=== PATIENT | male | born 1940 ===

== ENCOUNTER 2021-02-28 08:19 | Observation (INO) ==
--- NOTE | 2021-01-31 15:04 | PAT Medication Instructions ---
Medication Instructions Date of Service January 31, 2021 Home Medications amlodipine 5 mg tablet 5 mg PO QAM aspirin 81 mg tablet 81 mg PO 3XWK atorvastatin 20 mg tablet 20 mg PO PM cyanocobalamin (vitamin B-12) 1,000 mcg tablet,extended release 1,000 mcg PO 3XWK empagliflozin 25 mg tablet 25 mg PO QAM finasteride 5 mg tablet 5 mg PO PM losartan 100 mg tablet 100 mg PO QAM metformin 1,000 mg tablet 1,000 mg PO BID metoprolol succinate 50 mg tablet,extended release 24 hr 50 mg PO QAM uwxosmblrcwg-wbtpocdt-yetxgh tablet 1 tab PO QAM omeprazole 20 mg capsule,delayed release 20 mg PO PM ferrous sulfate 325 mg PO QAM Continue as directed aspirin 81 mg tablet 81 mg PO 3XWK (continue as normal unless told otherwise by surgeon) STOP taking 2 weeks before surgery (or as soon as possible if surgery is within 2 weeks) bxxnltgsofcv-cnorqcfr-thntup tablet 1 tab PO QAM DO NOT take the morning of surgery cyanocobalamin (vitamin B-12) 1,000 mcg tablet,extended release 1,000 mcg PO 3XWK empagliflozin 25 mg tablet 25 mg PO QAM losartan 100 mg tablet 100 mg PO QAM metformin 1,000 mg tablet 1,000 mg PO BID ferrous sulfate 325 mg PO QAM Take morning of surgery With a small sip of water, OTHERWISE NOTHING TO EAT OR DRINK AFTER MIDNIGHT: amlodipine 5 mg tablet 5 mg PO QAM metoprolol succinate 50 mg tablet,extended release 24 hr 50 mg PO QAM Take evening before surgery atorvastatin 20 mg tablet 20 mg PO PM finasteride 5 mg tablet 5 mg PO PM metformin 1,000 mg tablet 1,000 mg PO BID omeprazole 20 mg capsule,delayed release 20 mg PO PM Other Notes If you have any questions please call us at [phone] or [phone] or [phone] or [phone]
--- NOTE | 2021-02-03 09:50 | Anesthesiology Consultation ---
Date of Service February 03, 2021 Assessment & Plan (1) Encounter for pre-operative examination: COVID Status: As of 02/03 assessment, patient denies travel to endemic area, known exposure/sick contacts, or symptoms of COVID19. Patient instructed that they and their household members must follow strict social distancing guidelines, wear a mask in public and avoid travel/events/gatherings for 14 days prior to surgery. Preoperative COVID19 testing to be completed prior to surgery per surgeon's arrangements (02/24). Patient made aware to self-isolate as much as possible between COVID testing and surgery. BSG AM DOS. Will check platelet count AM of surgery prior to SAB. Chart Review Chart Review: Acceptable Risk for Surgery (pending hematology appointment 02/04) and Patient seen in Pre Admission Testing Teaching & Discussion Instructed NPO after midnight before surgery, except medications with 15 cc of water. Medication instructions provided according to the PAT guidelines. History Surgery Operation Date: 02/28/21 07:15 Proposed Procedures p Right Total Knee Arthroplasty - Juan Carlos Mon MD Height/Weight Height: 5 ft 11 in Weight: 81.2 kg Allergies Allergy/AdvReac Type Severity Reaction Status Date / Time tamsulosin [From Flomax] AdvReac Intermediate Dizziness Verified 01/31/21 07:34 Medications Home Medications Medication Instructions Recorded Confirmed Last Taken amlodipine 5 mg tablet 5 mg PO QAM 06/14/20 01/31/21 Unknown aspirin 81 mg tablet 81 mg PO 3XWK 06/14/20 01/31/21 Unknown atorvastatin 20 mg tablet 20 mg PO PM 06/14/20 01/31/21 Unknown cyanocobalamin (vitamin B-12) 1,000 mcg PO 3XWK 06/14/20 01/31/21 Unknown 1,000 mcg tablet,extended release empagliflozin 25 mg tablet 25 mg PO QAM 06/14/20 01/31/21 Unknown finasteride 5 mg tablet 5 mg PO PM 06/14/20 01/31/21 Unknown lancets 28 gauge #25 ea 06/14/20 06/14/20 Unknown losartan 100 mg tablet 100 mg PO QAM 06/14/20 01/31/21 Unknown metformin 1,000 mg tablet 1,000 mg PO BID 06/14/20 01/31/21 Unknown metoprolol succinate 50 mg 50 mg PO QAM 06/14/20 01/31/21 Unknown tablet,extended release 24 hr xluzfkyoybgq-yoaxktvq-ucdozn tablet 1 tab PO QAM 06/14/20 01/31/21 Unknown omeprazole 20 mg capsule,delayed 20 mg PO PM 06/14/20 01/31/21 Unknown release ferrous sulfate 325 mg PO QAM 01/31/21 01/31/21 Unknown Wheeled Walker #1 ea 02/03/21 02/03/21 Unknown Past Medical History Medical History (Updated 02/03/21 @ 15:08 by Suleiman Linder) Anemia with low platelet count PT REPORTS HAS ALWAYS HAD LOW PLATELET COUNT > FOLLOWS WITH [facility]> DR. ALISSA GIVENS JR. Bilateral primary osteoarthritis of knee BPH (benign prostatic hyperplasia) Diabetes mellitus, type 2 NIDDM. A1C 7.2% 01/03/21. GERD (gastroesophageal reflux disease) Hyperlipidemia Hypertension Exercise / Class Metabolic Activity II 4-5 Yardwork/Stairs/Walk up hill Past Family History Family History Father Diabetes Past Surgical History Surgical History (Updated 02/03/21 @ 15:09 by Suleiman Linder) H/O craniotomy Age 15 for hydrocephalus after head injury. History of cardiac cath 20 yrs ago > no stents History of colonoscopy History of laminectomy LUMBAR History of tonsillectomy History of tooth extraction Hx of vasectomy Past Anesthesia History No Hx of Anesthesia Complications and No Family Hx of Anesthesia Complications History of PONV No Hx of PONV and No Hx of Motion Sickness Social History Smoking Status: Never smoker Do You Dip or Chew Tobacco: No Hx Alcohol Use: No Hx Substance Use: No substance use type: does not use Review of Systems Pt denies any recent chest pain, shortness of breath, palpitations, cough, fever, URI, or uncontrolled acid reflux. Physical Exam Vital Signs BP: 118/62 P: 60bpm SPO2: 97% RA T: 97.5 F R: 16 ENMT Mouth: + dental restorations (crown, fillings); no chipped teeth and no loose teeth Thyromental Distance: < 3.5 Finger Breadths (3) Mallampati Class: I Neck + limited neck extension (mildly) Respiratory normal respiratory effort, lungs clear to auscultation Cardiovascular RRR, no murmur, no edema Vessels: no carotid bruit Testing Laboratory Results 02/03/21 10:14 02/03/21 10:14 PT 10.8 Seconds (9.0-12.0) 02/03/21 10:14 INR 1.1 (0.9-1.1) 02/03/21 10:14 APTT 25.6 Seconds (21.0-31.0) 02/03/21 10:14 Blood Type O Positive 02/03/21 10:14 Antibody Screen NEGATIVE 02/03/21 10:14 *Surgeon's office flagged re: low platelet count. This is chronic, pt follows with heme. Electrocardiogram Date: 02/03/21 Findings: + SB @ (58bpm) First-degree AV block. Chest X-Ray Date: 02/03/21 FINDINGS: Mild diffuse interstitial thickening which is likely chronic. No focal lung consolidations to suggest pneumonia. No evidence for pulmonary edema. The heart is normal in size. There are calcifications within the aortic knob. No pleural effusions. No pneumothorax. IMPRESSION: Mild diffuse interstitial thickening which is likely chronic. Otherwise, no acute process within the chest.
--- NOTE | 2021-02-03 10:53 | XRay Report ---
XR chest Pre-admission PA/Lat HISTORY: Preop. COMPARISON: None. FINDINGS: Mild diffuse interstitial thickening which is likely chronic. No focal lung consolidations to suggest pneumonia. No evidence for pulmonary edema. The heart is normal in size. There are calcifi cations within the aortic knob. No pleural effusions. No pneumothorax. IMPRESSION: Mild diffuse interstitial thickening which is likely chronic. Otherwise, no acute process within the chest. ACT 112: Negative or not required by law. Electronically signed by: Adrian Rapp M.D. 02/03/2021 10:51 AM
[2021-02-03 11:13] LABS: Hematocrit (blood only) 36.9 % (42-52); Hemoglobin 12.4 g/dL (14.0-18.0); Mean Corpuscular Hemoglobin 29.5 pg (25-34); Mean Corpuscular Hgb Conc 33.6 g/dL (32-36); Mean Corpuscular Volume 87.6 fL (80-100); RDW Coefficient of Variation 14.7 % (11.5-14.5); RDW Standard Deviation 47.3 fL (36.4-46.3); Red Blood Count 4.21 M/uL (4.7-6.1); White Blood Count 4.05 K/uL (4.8-10.8)
[2021-02-03 11:24] LABS: INR 1.1 (0.9-1.1); Partial Thromboplastin Time 25.6 Seconds (21.0-31.0); Prothrombin Time 10.8 Seconds (9.0-12.0)
[2021-02-03 11:33] LABS: BUN Creatinine Ratio 14.7 (10-20); Calcium 9.1 mg/dl (8.5-10.1); Creatinine Clr Calc Pharmacy 52.3 ml/min; Est GFR (African American) 66.7; Est GFR (Non-African American) 57.5; Potassium 4.5 mmol/L (3.5-5.1)
[2021-02-03 11:52] LABS: Basophils # (auto) 0.02 K/uL (0-0.2); Basophils % (auto) 0.5 %; Eosinophils # (auto) 0.13 K/uL (0-0.5); Eosinophils % (auto) 3.2 %; Immature Granulocytes # (auto) 0.01 K/uL (0.00-0.02); Immature Granulocytes % (auto) 0.2 %; Lymphocytes # (auto) 1.16 K/uL (1.2-3.4); Lymphocytes % (auto) 28.6 %; Mean Platelet Volume 11.5 fL (7.4-10.4); Monocytes # (auto) 0.28 K/uL (0.11-0.59); Monocytes % (auto) 6.9 %; Neutrophils # (auto) 2.45 K/uL (1.4-6.5); Neutrophils % (auto) 60.6 %; Platelet Count 99 K/uL (130-400); Platelet Estimate Decreased (Normal)
--- NOTE | 2021-02-04 06:23 | Electrocardiogram Report ---
Test Reason : Blood Pressure : / mmHG Vent. Rate : 058 BPM Atrial Rate : 058 BPM P-R Int : 286 ms QRS Dur : 082 ms QT Int : 422 ms P-R-T Axes : 033 058 065 degrees QTc Int : 414 ms Sinus bradycardia with 1st degree A-V block Otherwise normal ECG No previous ECGs available Confirmed by Spencer Orellana ([id number]) on 02/04/2021 6:23:13 AM Referred By: Juan Carlos Mon Confirmed By:Spencer Orellana
[~2021-02-28 08:19] MED LIST: BUPIVACAINE 0.5 % 5 MG/1 ML PF 10ML VIAL ONE; BUPIVACAINE LIPOSOME/PF 266 MG, BUPIVACAINE/EPINEPHRINE 50 ML, SODIUM CHLORIDE 0.9% 30 ... INFIL SCH; FAMOTIDINE 20 MG TAB PO SCH; GABAPENTIN 300 MG CAP PO SCH; LR 500ML BOLUS, THEN 15ML/HR IV SCH; LR 60ML/HR IV SCH; METOCLOPRAMIDE HCL 10 MG TABLET PO SCH; TRANEXAMIC ACID 1,000 MG **IV Intra-op IV SCH; ceFAZolin 2000MG 2,000 MG/15 ML SYR IV SCH
--- NOTE | 2021-02-28 08:50 | History & Physical Bridge Note ---
Date of Service February 28, 2021 History & Physical Bridge Note I have examined the patient, reviewed the History & Physical and in the interval since the performance of the History & Physical I have noted the following changes of clinical significance: no changes noted
[2021-02-28 09:07] LABS: Platelet Count 111 K/uL (130-400)
[2021-02-28] MEDS ORDERED: LIDOCAINE HCL 2% 2 ML VIAL/AMP(20MG/ML) INFIL ONE (09:21)
[2021-02-28] MEDS ORDERED: PROPOFOL IV EMULSION 10 MG/ML 20 ML VIAL IV ONE ×2 (09:21→11:39)
[2021-02-28] MEDS ORDERED: MIDAZOLAM HCL 1 MG/ML 2ML VIAL ONE (09:22)
[2021-02-28] MEDS ORDERED: fentaNYL citrate 100 MCG/2 ML VIAL ONE (09:23)
[2021-02-28] MEDS: ACETAMINOPHEN 500 MG TAB PO SCH ×4 (09:31→20:47)
[2021-02-28] MEDS ORDERED: fentaNYL citrate 100 MCG/2 ML VIAL IV PRN (10:19)
[2021-02-28] MEDS ORDERED: ONDANSETRON INJ 2 MG/ML 2 ML VIAL IV PRN ×2 (10:19→15:01)
[2021-02-28] MEDS ORDERED: ePHEDrine sulfate 50 MG/ML AMP IV PRN (10:19)
[2021-02-28] MEDS ORDERED: ATROPINE SULFATE 0.1 MG/ML 10ML SYR IV PRN (10:19)
[2021-02-28] MEDS ORDERED: BUPIVACAINE LIPOSOME 1.3% 266 MG/20 ML VIAL ONE (10:54)
[2021-02-28] MEDS ORDERED: SODIUM CHLORIDE 0.9% PF 50 ML VIAL ONE (10:54)
[2021-02-28] MEDS ORDERED: BACITRACIN INJ 50,000 UNIT VIAL ONE (10:54)
[2021-02-28] MEDS ORDERED: BUPIVACAINE 0.25% 30 ML VIAL ONE (10:54)
[2021-02-28] MEDS ORDERED: EPINEPHrine INJ 1 MG/ML AMP ONE (10:54)
[2021-02-28] MEDS ORDERED: ONDANSETRON INJ 2 MG/ML 2 ML VIAL ONE (11:39)
[2021-02-28] MEDS ORDERED: DEXAMETHASONE SOD INJ 4 MG/ML VIAL ONE (11:39)
--- NOTE | 2021-02-28 13:12 | Operative Report ---
Post Operative Report Pre & Post Diagnosis Operation Date: 02/28/21 10:40 Pre-Op Diagnosis: Right Knee Osteoarthritis; Right Knee Pain Post-Op Diagnosis: Right Knee Osteoarthritis; Right Knee Pain I identified the patient and participated in the time-out.: Yes Procedure Operation Date: 02/28/21 10:40 Actual Procedures p Right Total Knee Arthroplasty, Cemented(Right) - Juan Carlos Mon MD Surgeon Juan Carlos Mon MD Manager Compensation ANNA English Estimated Blood Loss 50 Findings Consistent with Post-Op Diagnosis Operative findings real advanced right knee DJD. Extensive grade 4 dvzb-hw-osmw disease of the medial compartment as well as the medial aspect of patellofemoral compartment. He had a varus deformity to his knee. Moderate sized knee joint effusion. Fluids 2300 cc. Specimens Right knee sent for pathology. Drains None Anesthesia Type Spinal MAC Complications none Disposition Accompanied Patient To Recovery: No Disposition: Recovery Room Indications Patient is an 80-year-old gentleman has had a long history of bilateral knee pain discomfort the right side a bit worse than the left. He has been through extensive conservative treatment of the past 15 years. This became less successful over time. To start become more debilitated by this. That was affecting his quality life. He elected proceed with right total knee arthroplasty. Description of Procedure Operative implants consisted of: 1 Biomet Vanguard size 70 right posterior stabilized femoral component. 2. Biomet size 79 tibial tray. 3. 12 mm posterior stabilized polyethylene insert. 4. 34 x 8 and half all polypatella. The patient was taken to the operating room, identified, placed on the operating table supine position but all contact areas were properly padded. IV antibiotics tried by anesthesia team. Spinal anesthetic and abductor canal bloc k had been provided in the holding area. Davis catheter was placed in sterile fashion. Right thigh turn was then placed. The right lower extremities then prepped and draped in usual sterile fashion. The right leg was elevated exsanguinated with you with the use of an Esmarch and tourniquet placed at 300 mmHg. An anterior approach of the right knee was then performed through longitudinal incision centered over the patella. Sharp dissection was carried through subcutaneous tissue down to the extensor mechanism. A medial parapatellar arthrotomy incision was made. Some subperiosteal dissection was carried out medially. The fat pad was resected from each patella tendon. Lateral patellofemoral ligament was released. Patella was subluxated laterally. The knee was flexed. The osteophytes were taken off distal femur. The ACL and PCL were then released from the distal femur and the tibia subluxated anteriorly. The external tibial alignment jig was then placed in the interface the tibia and adjusted 16 mm medially. Proximal tibial cut was made to remove about a millimeter bone from the most deficient aspect medial tibial plateau. The tibia was then sized to a size 79. Some osteophytes were taken off medial and posterior medially. Attention drawn the femur. The distal femur with a sharp drill. Intramedullary canal was suction. A right 6 degree valgus cutting guide was placed. Distal femoral cutting block was pinned in place but distal femoral cut was made to take an additional 3 mm of bone off distal femur. Femur was then sized to a size 70. The AP cutting block was pinned parallel to the epicondylar axis which was 3 degrees of external rotation. The anterior cut, anterior chamfer, posterior cut, posterior chamfer cuts were made. The box cutting guide was placed in the just slight lateral box cut was made. The knee was flexed. The remnants of the medial lateral menisci were excised. The osteophytes were taken off the posterior aspect of the femur. A trial femoral component was placed. The tibial tray was pinned in maximum external rotation and the drill and stem punch were used to create the defect in the proximal tibia for the tibial tray. Knee was then trialed and the 12 mm insert fit most appropriately. Attention drawn the patella. The patella was cleaned of all soft tissues. Patella thickness measured 22 mm in thickness was cut down to 14. It was sized to a size 34 patella. The locals were drilled for the 34 patella. The lateral osteophyte was removed. Patella button was placed. Knee was taken through range of motion patella tracked nicely with no thumbs test. Attention drawn to placing the permanent components. All trial components were removed. Bone plug was placed in the distal femur limit blood loss put a double batch [place]os G cement was mixed. A Biomet Vanguard size 70 right posterior stabilized femoral component, a size 79 tibial tray, a 12 mm posterior stabilized polyethylene insert, and a 34 x 8 and half all polypatella were then cemented in place. Knee was brought in in full extension until cement hardened. Final cement check was then performed. Pericapsular tissues were injected with total 100 cc of combination of 20 cc of Exparel, 30 cc normal saline, 50 cc of quarter percent Marcaine with epinephrine. Patient did receive 1 g tranexamic acid. The tourniquet was then let down for final tourniquet time 56 minutes. Hemostasis reduced electrocautery. The extensor mechanism closed with combination 1 PDS suture and #1 Vicryl suture in [id number] fashion. Extensor mechanism checked found to be intact with subcutaneous tissue then closed with 2 Dexon suture in a buried interrupted fashion skin was closed skin minh. Leg was then cleaned dried and sterile dressing composed Xeroform, 4 x 4's, sterile cast padding, Prince bandage were applied. Patient then transferred to the recovery room in stable condition. Patient tolerated the procedure well and there were no complicatio ns. Vincent English, my physician horticultural nursery assistant, was present for the entire procedure. His assistance was essential and required for appropriate patient positioning, prepping and draping, surgical exposure, performing the technical details of the operation, placement the implants, closure of the wound, and placement of the sterile bandage. I attest to the content of the Intraoperative Record and any orders documented therein. Any exceptions are noted below.
--- NOTE | 2021-02-28 13:28 | Anesthesiology Progress Note ---
Date of Service February 28, 2021 Anesthesia Post Procedure Vital Signs Vital Signs: Temp Pulse Pulse Resp BP BP Pulse Ox 02/28/21 13:20 53 L 16 125/63 100 02/28/21 13:10 58 L 18 128/64 100 02/28/21 13:00 53 L 18 127/68 100 02/28/21 12:54 96.8 F L 58 L 20 118/62 100 02/28/21 09:22 97.5 F L 58 L 18 148/71 H 100 Transfer of Care Handoff Completed per policy Notes Mental Status: alert / awake / arousable and participated in evaluation Patient Amnestic to Procedure: Yes Nausea / Vomiting: adequately controlled Pain: adequately controlled Airway Patency, RR, SpO2: stable & adequate BP & HR: stable & adequate Hydration State: stable & adequate Neuraxial Anesthesia: was administered and sensory block is resolving Anesthetic Complications: no major complications apparent and Pt Satisfied with anesthetic care
--- NOTE | 2021-02-28 13:42 | XRay Report ---
RIGHT KNEE 2 VIEWS History: Right total knee arthroplasty. Degenerative arthritis. Postop. FINDINGS: The patient is status post a right total knee arthroplasty. The hardware is intact. No frac ture or dislocation. Skin minh are in place. IMPRESSION: Right total knee arthroplasty. No evidence for hardware complication. ACT 112: Negative or not required by law. Electronically signed by: Adrian Rapp M.D. 02/28/2021 1:40 PM
[2021-02-28] MEDS ORDERED: PHARMACY GLYCEMIC MGMT CONSULT PRN (15:01)
[2021-02-28] MEDS ORDERED: METOCLOPRAMIDE HCL INJ 5 MG/ML 2 ML VIAL IV PRN (15:01)
[2021-02-28] MEDS ORDERED: MAGNESIUM HYDROXIDE SUSP 30 ML UDC PO PRN (15:01)
[2021-02-28] MEDS ORDERED: ALUMINUM/MAGNESIUM SUSP 30 ML UDC PO PRN (15:01)
[2021-02-28] MEDS ORDERED: GLUCAGON FOR INJ 1 MG VIAL SQ PRN (15:01)
[2021-02-28] MEDS ORDERED: TAMSULOSIN HCL 0.4 MG CAP PO PRN (15:01)
[2021-02-28] MEDS ORDERED: CARBOHYDRATES FOR HYPOGLYCEMIA PO PRN (15:01)
[2021-02-28] MEDS ORDERED: GLUCOSE 10 TABS/TUBE PO PRN (15:01)
[2021-02-28] MEDS ORDERED: NALOXONE HCL 0.4 MG/1 ML VIAL/CARP IV PRN (15:01)
[2021-02-28] MEDS ORDERED: bisacodyL 10 MG SUPP PR PRN (15:01)
[2021-02-28] MEDS ORDERED: GLUCOSE 40% GEL 15 GM TUBE PO PRN (15:01)
[2021-02-28] MEDS ORDERED: DEXTROSE 50% 50 ML SYRINGE IV PRN (15:01)
[2021-02-28] MEDS ORDERED: HYDROmorphone INJ 0.5 MG/0.5 ML SYR IV PRN (15:01)
--- NOTE | 2021-02-28 15:23 | Pharmacy Report ---
Pharmacy Glycemic Short Note 2 - Date of Service February 28, 2021 - Glycemic Short BSG Results (Last 24 hours): 02/28/21 02/28/21 08:49 12:58 POC Glucose 145 H 138 H OUTPATIENT ANTIDIABETIC REGIMEN: * Metformin 1000 mg BID, empagliflozin 25 mg ASSESSMENT: * Mr. AGUILAR is admitted following R total knee arthroplasty, BSGs 145-138 mg/dL controlled with oral medication outpatient * Will set lantus scale with dinner and start novolog parameters between weight based stress of 2 and 3, will adjust as needed per BSG trend. * Overnight checks PLAN FOR INPATIENT GLYCEMIC CONTROL: * Hold outpatient oral diabetes medications * Basal insulin * Lantus 15-25 units x 1 * Bolus insulin * NovoLog per scale ACHS or Q6hrs while NPO * Goal Range: Low 110 mg/dL - High 140 mg/dL * Correction Factor: 25 mg/dL/unit * Nutritional / Prandial insulin per carb ratio of 1 unit per 8 grams CHO consumed
[2021-02-28] MEDS: SODIUM CHLORIDE 0.9% 1000ML 1,000 ML IV SCH (15:39)
--- NOTE | 2021-02-28 16:07 | Progress Notes ---
DATE: 02/28/2021 SUBJECTIVE: An 80-year-old gentleman postop from a right knee replacement. He is doing well. Does not having any pain yet. Block is still in effect. No chest pain or shortness of breath. Not feeling dizzy or lightheaded. OBJECTIVE: VITAL SIGNS: Temperature is 36.5. Vital signs stable. GENERAL: Shows a pleasant elderly male. He is sitting up in bed and looks pretty comfortable. LUNGS: Clear to auscultation. HEART: Regular rate and rhythm. ABDOMEN: Soft, nontender, nondistended. EXTREMITIES: Grossly neurovascularly intact except as follows. Examination of the right leg reveals the leg to be well aligned. Dressing is clean, dry and intact. His toes are pink with brisk refill. He cannot really flex or extend his foot or toes yet on either side. X-RAYS: X-rays of the right knee from recovery room are reviewed. It shows right cemented posterior stabilized total knee arthroplasty. Components looked to be in good position. No signs of problems. ASSESSMENT: An 80-year-old gentleman with multiple medical comorbidities including hypertension, diabetes, elevated cholesterol, gastroesophageal reflux disease, and low platelets postop from a right knee replacement. He is doing well. Block is still in effect. PLAN: 1. DVT prophylaxis including thigh-high TEDs, SCDs, and we are going to use one baby aspirin once a day. We will follow his platelets in the hospital. 2. PT/OT. Weight bear as tolerated. Right total knee protocol. 3. Pain control, doing well with current pain regimen. We are going to plan on using Tylenol and tramadol. 4. A low platelets. We will limit his baby aspirin once a day and follow his platelets. 5. Disposition: Plan to discharge to home with some home health likely Wednesday.
[2021-02-28] MEDS ORDERED: INSULIN GLARGINE SOLOSTAR 100 UNITS/ML 3 ML PEN SC ONE (16:30)
[2021-02-28] MEDS: PROSOURCE NO CARB 30 ML/PKT PO SCH ×2 (16:33→20:44)
[2021-02-28] MEDS: KETOROLAC TROMETHAMINE 15 MG/ML VIAL IV SCH ×2 (16:39→20:47)
[2021-02-28] MEDS: FERROUS GLUCONATE 324 MG TAB PO SCH (16:40)
[2021-02-28] MEDS: ASCORBIC ACID 500 MG TAB PO SCH (16:40)
[2021-02-28] MEDS: traMADol HCL 50 MG TABLET PO PRN (17:09)
[2021-02-28] MEDS: INSULIN ASPART 100 UNITS/ML 3 ML PEN SC SCH ×2 (18:14→20:46)
[2021-02-28] MEDS: ceFAZolin 1000MG 1,000 MG/7.5 ML SYR IV SCH (18:27)
[2021-02-28] MEDS ORDERED: TRANEXAMIC ACID / 0.7% NACL 1,000 MG/100 ML BAG IV SCH (19:00)
[2021-02-28] MEDS: FINASTERIDE 5 MG TAB PO SCH (20:45)
[2021-02-28] MEDS: SENNA 8.6 MG TAB PO SCH (20:45)
[2021-02-28] MEDS: PANTOprazole 40 MG TAB PO SCH (20:45)
[2021-02-28] MEDS: ATORVASTATIN 20 MG TAB PO SCH (20:45)
[2021-02-28] MEDS: DOCUSATE SODIUM 100 MG CAP PO SCH (20:46)
[2021-03-01] MEDS: INSULIN ASPART 100 UNITS/ML 3 ML PEN SC SCH ×6 (00:11→21:18)
[2021-03-01] MEDS: SODIUM CHLORIDE 0.9% 1000ML 1,000 ML IV SCH (01:08)
[2021-03-01] MEDS: KETOROLAC TROMETHAMINE 15 MG/ML VIAL IV SCH ×4 (03:56→21:18)
[2021-03-01] MEDS: ceFAZolin 1000MG 1,000 MG/7.5 ML SYR IV SCH (03:56)
[2021-03-01] MEDS: ACETAMINOPHEN 500 MG TAB PO SCH ×3 (05:26→21:17)
[2021-03-01 05:48] LABS: Hematocrit (blood only) 35.8 % (42-52); Hemoglobin 12.2 g/dL (14.0-18.0); Mean Corpuscular Hemoglobin 29.7 pg (25-34); Mean Corpuscular Hgb Conc 34.1 g/dL (32-36); Mean Corpuscular Volume 87.1 fL (80-100); RDW Coefficient of Variation 14.5 % (11.5-14.5); RDW Standard Deviation 46.3 fL (36.4-46.3); Red Blood Count 4.11 M/uL (4.7-6.1); White Blood Count 7.08 K/uL (4.8-10.8)
[2021-03-01 06:16] LABS: Estimated Average Glucose 157 mg/dl; Hemoglobin A1C 7.1 % (4.5-5.6)
[2021-03-01 06:18] LABS: BUN Creatinine Ratio 19.9 (10-20); Calcium 8.6 mg/dl (8.5-10.1); Est GFR (African American) 61.6; Est GFR (Non-African American) 53.1
[2021-03-01 06:21] LABS: Mean Platelet Volume 10.4 fL (7.4-10.4); Platelet Count 95 K/uL (130-400)
[2021-03-01 06:24] LABS: Platelet Estimate Decreased (Normal)
[2021-03-01] MEDS: CEROVITE ADV FORMULA TAB PO SCH (07:38)
[2021-03-01] MEDS: amLODIPine BESYLATE 5 MG TAB PO SCH (07:42)
[2021-03-01] MEDS: FERROUS GLUCONATE 324 MG TAB PO SCH ×2 (07:44→15:46)
[2021-03-01] MEDS: METOPROLOL SUCC 50MG EXT REL TAB PO SCH (07:44)
[2021-03-01] MEDS: ASPIRIN 81 MG ECTAB PO SCH (07:45)
[2021-03-01] MEDS: LOSARTAN POTASSIUM 50 MG TAB PO SCH (07:45)
[2021-03-01] MEDS: ASCORBIC ACID 500 MG TAB PO SCH ×2 (07:45→15:46)
[2021-03-01] MEDS: DOCUSATE SODIUM 100 MG CAP PO SCH ×2 (07:46→20:15)
[2021-03-01] MEDS: MULTIVITAMIN TAB PO SCH (07:46)
[2021-03-01] MEDS: PROSOURCE NO CARB 30 ML/PKT PO SCH ×3 (07:48→20:16)
--- NOTE | 2021-03-01 08:54 | Orthopedic Progress Note ---
Date of Service March 01, 2021 Assessment & Plan (1) History of knee replacement procedure of right knee: An 80-year-old gentleman with multiple medical comorbidities including hypertension, diabetes, elevated cholesterol, gastroesophageal reflux disease, and low platelets postop from a right knee replacement. He is doing well. Watching low platelets - recommend inpatient through at least POD2 (tomorrow). PLAN: 1. DVT prophylaxis including thigh-high TEDs, SCDs, and we are going to use one baby aspirin once a day. We will follow his platelets in the hospital. 2. PT/OT. Weight bear as tolerated. Right total knee protocol. 3. Pain control, doing well with current pain regimen. We are going to plan on using Tylenol and tramadol. 4. A low platelets. We will limit his baby aspirin once a day and follow his platelets. 5. Disposition: Plan to discharge to home with some home health likely Wednesday. Subjective Reports no complaints. He says his pain is been very well managed by the nursing staff. He is walked in his room with therapy and plans to do more today. He is aware of his low platelets and says that this is normal for him. He is understanding he is likely to go home tomorrow. Review of Systems All systems reviewed & are unremarkable except as noted in HPI & below. Physical Exam Right lower extremity: The knee dressing is clean dry and intact. He seated at the bed eating breakfast. He is resting at about 90 degrees of flexion and can actively extend unassisted to about 10 degrees short of full extension. Positive DF/PF/EHL. DNVI Constitutional WD/WN, vitals as above no acute distress and not intoxicated appearing Respiratory normal respiratory effort; no labored breathing Cardiovascular Extremities: normal capillary refill Results & Data Results & Data Laboratory Results H & H 02/03/21 03/01/21 Range/Units 10:14 05:36 Hgb 12.4 L 12.2 L (14.0-18.0) g/dL Hct 36.9 L 35.8 L (42-52) % Coagulation 02/03/21 Range/Units 10:14 INR 1.1 (0.9-1.1) Platelets 95 Diagnostic Findings . PG Care Time/CCT Total # of Minutes Spent Total Time Spent with Patient: Total time spent is greater than 50% in coordination of care (as documented) at patient's floor/unit and/or counseling patient: Coding Level of Care Code 25954 Post Operative Follow-Up Diagnoses History of knee replacement procedure of right knee Z96.651
[2021-03-01] MEDS: traMADol HCL 50 MG TABLET PO PRN (08:59)
[2021-03-01] MEDS ORDERED: CYANOCOBALAMIN 500 MCG TABLET (VITAMIN B-12) PO SCH (09:00)
[2021-03-01] MEDS: SENNA 8.6 MG TAB PO SCH (20:15)
[2021-03-01] MEDS: ATORVASTATIN 20 MG TAB PO SCH (20:15)
[2021-03-01] MEDS: FINASTERIDE 5 MG TAB PO SCH (20:16)
[2021-03-01] MEDS: PANTOprazole 40 MG TAB PO SCH (20:16)
[2021-03-01] MEDS ORDERED: INSULIN GLARGINE SOLOSTAR 100 UNITS/ML 3 ML PEN SC SCH (21:00)
[2021-03-02] MEDS: traMADol HCL 50 MG TABLET PO PRN (01:10)
[2021-03-02] MEDS: KETOROLAC TROMETHAMINE 15 MG/ML VIAL IV SCH ×2 (03:14→09:40)
[2021-03-02] MEDS: ACETAMINOPHEN 500 MG TAB PO SCH (05:00)
[2021-03-02 06:19] LABS: Hematocrit (blood only) 29.9 % (42-52); Hemoglobin 10.3 g/dL (14.0-18.0); Mean Corpuscular Hemoglobin 30.1 pg (25-34); Mean Corpuscular Hgb Conc 34.4 g/dL (32-36); Mean Corpuscular Volume 87.4 fL (80-100); RDW Coefficient of Variation 15.2 % (11.5-14.5); RDW Standard Deviation 48.7 fL (36.4-46.3); Red Blood Count 3.42 M/uL (4.7-6.1); White Blood Count 3.82 K/uL (4.8-10.8)
[2021-03-02 06:20] LABS: Mean Platelet Volume 10.7 fL (7.4-10.4); Platelet Count 89 K/uL (130-400)
[2021-03-02] MEDS: INSULIN ASPART 100 UNITS/ML 3 ML PEN SC SCH (07:33)
[2021-03-02] MEDS: METOPROLOL SUCC 50MG EXT REL TAB PO SCH (07:34)
[2021-03-02] MEDS: FERROUS GLUCONATE 324 MG TAB PO SCH (07:34)
[2021-03-02] MEDS: ASCORBIC ACID 500 MG TAB PO SCH (07:35)
[2021-03-02] MEDS: amLODIPine BESYLATE 5 MG TAB PO SCH (07:35)
[2021-03-02] MEDS: LOSARTAN POTASSIUM 50 MG TAB PO SCH (07:35)
[2021-03-02] MEDS: CEROVITE ADV FORMULA TAB PO SCH (07:35)
[2021-03-02] MEDS: ASPIRIN 81 MG ECTAB PO SCH (07:35)
[2021-03-02] MEDS: DOCUSATE SODIUM 100 MG CAP PO SCH (07:36)
[2021-03-02] MEDS: MULTIVITAMIN TAB PO SCH (07:37)
[2021-03-02] MEDS: PROSOURCE NO CARB 30 ML/PKT PO SCH (07:38)
--- NOTE | 2021-03-02 10:13 | Orthopedic Progress Note ---
Date of Service March 02, 2021 Assessment & Plan (1) History of knee replacement procedure of right knee: An 80-year-old gentleman with multiple medical comorbidities including hypertension, diabetes, elevated cholesterol, gastroesophageal reflux disease, and low platelets postop from a right knee replacement. He is doing well. Platelets stable - only small insignificant drop. Stable for discharge home today, per plan. PLAN: 1. DVT prophylaxis including thigh-high TEDs, SCDs, and we are going to use one baby aspirin once a day. 2. PT/OT. Weight bear as tolerated. Right total knee protocol. 3. Pain control, doing well with current pain regimen. We are going to plan on using Tylenol and tramadol. 4. A low platelets. We will limit his baby aspirin once a day and follow his platelets. 5. Disposition: Plan to discharge to home today with home health. Subjective No issues overnight. Pain tolerable. Did well with PT/OT. Wants to go home. Review of Systems All systems reviewed & are unremarkable except as noted in HPI & below. Physical Exam RLE: dressing c/d/i. Able to do SLR with 5d lag. Flexion to 45. Gets full extension in bed. Constitutional WD/WN, vitals as above no acute distress and not intoxicated appearing Respiratory normal respiratory effort; no labored breathing Cardiovascular Extremities: normal capillary refill Results & Data Results & Data Laboratory Results H & H 02/03/21 03/01/21 03/02/21 Range/Units 10:14 05:36 05:57 Hgb 12.4 L 12.2 L 10.3 L (14.0-18.0) g/dL Hct 36.9 L 35.8 L 29.9 L (42-52) % Coagulation 02/03/21 Range/Units 10:14 INR 1.1 (0.9-1.1) Diagnostic Findings . PG Care Time/CCT Total # of Minutes Spent Total Time Spent with Patient: Total time spent is greater than 50% in coordination of care (as documented) at patient's floor/unit and/or counseling patient: Coding Level of Care Code 63618 Post Operative Follow-Up Diagnoses History of knee replacement procedure of right knee Z96.651
--- NOTE | 2021-03-05 14:33 | Discharge Summary ---
Date of Service March 05, 2021 Discharge Data Procedures Performed Operation Date: 02/28/21 10:40 Actual Procedures p Right Total Knee Arthroplasty, Cemented(Right) - Juan Carlos Mon MD Hospital Course (1) History of knee replacement procedure of right knee: This patient is a 80 year old male admitted on 02/28/21 and underwent total knee arthroplasty. He tolerated the procedure well and there were no complications. Transferred to the PACU post op and later to the orthopedic floor for further care. He was given ancef for antibiotic prophylaxis. He was also given JACK stockings, SCDs, and aspirin for DVT prophylaxis. He did have a low platelet count and was given one aspirin daily. Hemoglobin, hematocrit, and vital signs were monitored during his hospital stay and remained stable. Did not require any blood transfusions. There were no complications during his hospital stay. By post op day #2 the patient was tolerating a diabetic diet, pain was reasonably controlled with oral pain medicine, and he was participating in physical therapy. On post op day #2 the patient was discharged home and set up with home health care. He was given printed discharge instructions including prescriptions for extra strength tylenol, aspirin, and tramadol. Continue physical therapy, weight bearing as tolerated. Continue JACK stockings. Follow up approximately 2 weeks post op or sooner if there are problems or concerns. Coding Level of Care Code None Diagnoses History of knee replacement procedure of right knee Z96.651
== END 2021-03-02 13:07 | disposition home health service (06) ==
LOC: 3E 08:19 → ASU 08:19